=== PATIENT | male | born 1945 | race Caucasian/White ===

== ENCOUNTER 2021-09-15 06:22 | Day surgery (SDC) | payer MEDICARE, BC ==
[~2021-09-15 06:22] MED LIST: Dextrose 5%-0.45% NaCl 1,000 ML IV SCH; Sodium Chloride 0.9% 10 ML Syringe FLUSH PRN; Sodium Chloride 0.9% 10 ML Syringe FLUSH SCH
[2021-09-15] MEDS ORDERED: Midazolam 1 MG/ML 2 ML SDV IV ONE (06:23)
[2021-09-15] MEDS ORDERED: Propofol 200 MG/20 ML SDV IV ONE (06:23)
== END 2021-09-15 10:55 | disposition home or self-care (01) ==
LOC: DL.ENDO 06:22
PROVIDERS: ATTEND Internal Medicine Gastroenterology
DX: Z12.11 Encounter for screening for malignant neoplasm of colon (principal); K64.8 Other hemorrhoids; K57.30 Diverticulosis of large intestine without perforation or abscess without bleeding; I48.91 Unspecified atrial fibrillation; E78.5 Hyperlipidemia, unspecified; E11.9 Type 2 diabetes mellitus without complications; N40.0 Benign prostatic hyperplasia without lower urinary tract symptoms; G71.00 Muscular dystrophy, unspecified; Z85.038 Personal history of other malignant neoplasm of large intestine; Z79.02 Long term (current) use of antithrombotics/antiplatelets; Z79.01 Long term (current) use of anticoagulants; Z98.890 Other specified postprocedural states; Z20.822 Contact with and (suspected) exposure to COVID-19
CPT/HCPCS: 00812; G0105; J2250; J2704; J7042; U0002